=== PATIENT | female | born 1975 | race Caucasian/White ===

== ENCOUNTER → 2023-03-13 09:12 | Outpatient (BNVA) | payer BC, SELFPAY | PROVIDERS: PCP Registered Nurse; Visit Provider Registered Nurse | DX: E03.9 Hypothyroidism, unspecified (principal); E78.5 Hyperlipidemia, unspecified; Z12.31 Encounter for screening mammogram for malignant neoplasm of breast; Z76.89 Persons encountering health services in other specified circumstances; F17.210 Nicotine dependence, cigarettes, uncomplicated; Z72.0 Tobacco use; M25.571 Pain in right ankle and joints of right foot; M25.572 Pain in left ankle and joints of left foot | CPT/HCPCS: 80053; 80061; 84443; 85025 ==

== ENCOUNTER 2023-04-03 08:01 | Outpatient (CLI) | payer BC, SELFPAY ==
--- NOTE | 2023-04-03 08:08 | MM_ITS ---
WS: [id number] BILATERAL SCREENING DIGITAL TOMOSYNTHESIS MAMMOGRAM WITH CAD HISTORY: Z12.31 - Encounter for screening mammogram for malignant ... COMPARISON: No priors available. Prior mammograms are requested from an outside institution without s uccess Bilateral CC and MLO views with tomosynthesis and synthetic mammography submitted. Computer aided det ection analyzed. Breast composition: There are scattered areas of fibroglandular density. No suspicious masses, microc alcifications or architectural distortion. Benign calcification upper RIGHT breast. IMPRESSION: MM/[place] [id number] BI-RADS: 2-Benign FOLLOW UP: 1 Year Follow-up
== END 2023-04-03 08:02 | disposition home or self-care (01) ==
LOC: RAD 08:06 → MOBLMAM 08:07
PROVIDERS: PCP Registered Nurse; Visit Provider Registered Nurse
DX: Z12.31 Encounter for screening mammogram for malignant neoplasm of breast (principal)
CPT/HCPCS: 77063; 77067

== ENCOUNTER → 2023-06-07 08:37 | Outpatient (BNVA) | payer BC, SELFPAY | PROVIDERS: PCP Registered Nurse; Visit Provider Registered Nurse | DX: E07.9 Disorder of thyroid, unspecified (principal); E53.8 Deficiency of other specified B group vitamins; E03.9 Hypothyroidism, unspecified; E78.5 Hyperlipidemia, unspecified | CPT/HCPCS: 82607; 84443 ==

== ENCOUNTER 2023-10-21 14:58 | Emergency (ER) | payer OTHER, SELFPAY ==
[2023-10-21 15:26] VITALS: BP 115/71; PULSE 61; RESP 18; TEMP 36.6; O2SAT 97
--- NOTE | 2023-10-21 15:26 | XRR_ITS ---
PROCEDURE INFORMATION: Exam: XR Right Knee Exam date and time: 10/21/2023 5:29 PM Age: 48 years old Clinical indication: Pain; Knee; Right TECHNIQUE: Imaging protocol: Radiologic exam of the right knee. Views: 3 views. COMPARISON: No relevant prior studies available. FINDINGS: Bones/joints: No significant joint space narrowing. No fracture or acute osseous abnormality. Minimal spur formation of the posterior patella. No significant suprapatellar fullness or effusion. No abnormal soft tissue calcification is seen about the knee joint. Soft tissues: No significant focal soft tissue abnormality. XR/XR knee RT 3V* [id number] IMPRESSION: No acute findings.
--- NOTE | 2023-10-21 17:48 | W.ED.EXTPRO ---
Documented by User: PAT Maurer 10/21/23 21:33 HPI - Extremity Problem General: Chief complaint: Extremity Problem,Nontraumatic Stated complaint: right knee pain Time Seen by Provider: 10/21/23 17:01 Source: patient Mode of arrival: ambulatory Limitations: no limitations History of Present Illness: Patient is a 48-year-old female presents the emergency department complaining of right knee pain onset 3 weeks. Patient states she was extending her leg to stretch, when she notes sudden onset of pain to the posterior knee with radiation around laterally to the front of the knee. She denies any previous surgeries or trauma to the knee. She states the pain has gotten worse since onset and has continually swelled, though she denies any bruising or overlying skin changes. However, she does note some distal extension of the pain into her posterior calf, and is now reporting numbness and tingling into her foot. She denies any history of chronic oral contraceptive use, recent long trips, history of blood clots, any breathing difficulties, or any other symptoms. MD Complaint: joint swelling (right knee) and joint pain (right knee) Onset (ago): week(s) (3) Pain Consistency: constant and other (Worsening) Location: right Quality: sharp Radiation: distal (Posterior) Relieving factors: nothing Exacerbating factors: range of motion, weight bearing, walking and exertion Associated symptoms: Reports no associated symptoms; Deny chest pain, fever(s) or rash Review of Systems General: Reports: 10 or more systems reviewed and unremarkable except in HPI and below Const: Denies: fever(s), chills or fatigue Eyes: Denies: change in vision ENMT: Denies: throat pain, ear or mastoid pain or nasal discharge Card: Denies: chest pain, palpitations, swelling of feet/ankles or lightheadedness Resp: Denies: dyspnea, productive cough or wheezing GI: Denies: abdominal pain, nausea, vomiting, diarrhea or constipation : Denies: flank pain, difficulty voiding, dysuria or urinary frequency Musc: Reports: extremity pain (Right posterior calf), joint pain (Right knee), joint swelling (Right knee) and limited range of motion; Denies: neck pain, back pain, extremity swelling or joint redness Skin/Breast: Denies: rash Neuro: Reports: numbness in extremities (Right lower extremity) and sensory changes (Right foot); Denies: headache(s), weakness in extremities or dizziness PFSH ED PFSH: Medical History 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 History of thyroid cancer 2020 in [place] Hyperlipidemia Surgical History History of carpal tunnel surgery Right wrist History of tonsillectomy History of hysterectomy complete in 2019 History of thyroidectomy 2019 Family History Mother Cancer, Onset Age: 53 cervical and lung Hypertension Lung disease Grandmother Cancer paternal Hypertension Father Cancer, Onset Age: 59 Brother Diabetes Grandfather Diabetes maternal Hyperlipidemia Hypertension Denies family history of Chronic kidney disease (CKD) Social History Smoking and tobacco/nicotine status: current every day tobacco/nicotine user cigarettes Packs smoked per day: 1 and e-cigarettes Alcohol intake: never Substance/Drug Use: never Adopted: No Caregiver/support person: No Lives independently: No Household members: spouse Marital status: service: No Current occupational status: employed Sexually active: Yes Do you think of yourself as: Straight/Heterosexual Current gender identity: Female Crystal/Adventist: Religious Agree to transfusion: Yes Physical Exam Const: COMMON NORMALS: no acute distress, patient oriented x3 and no limitations GENERAL APPEARANCE: cooperative, comfortable and well developed ORIENTATION/CONSCIOUSNESS: Yes awake, Yes oriented to person, Yes oriented to place and Yes oriented to time HENMT: COMMON NORMALS: normocephalic, atraumatic and hearing grossly normal bilaterally HEAD & SCALP: normocephalic and atraumatic Neck/C-Spine: COMMON NORMALS: full ROM, supple and no JVD Resp: COMMON NORMALS: normal respiratory effort, No retractions, No use of accessory muscles and clear to auscultation bilaterally AUSCULTATION: clear to auscultation bilaterally Cardio: COMMON NORMALS: no JVD, regular rate, regular rhythm, No clicks present (Cardio), No murmurs present (Cardio) and No rub (Cardio) RATE: regular rate RHYTHM: regular rhythm Extremity: COMMON NORMALS: normal to inspection and capillary refill normal GENERAL: Yes calf tenderness (Right), No cyanosis, No deformity, No pallor, No palpable cord and No pulses abnormal RIGHT LOWER EXTREMITY: Yes knee joint Right knee: Yes inspection (Normal), Yes palpation (Tender at the popliteal fossa and lateral knee joint line), Yes ROM (Limited from pain), Yes neurovascular exam (Intact) and Yes special tests Right knee special tests: Patellar apprehension test: Positive, Stanislav test: Positive, Anterior drawer sign: Positive, Pivot shift test: Positive, Anterior Denis test: Positive, Posterior Denis test: Positive, Valgus stress test: Positive and Varus stress test: Positive Neuro: COMMON NORMALS: patient oriented x3, moves all extremities, no focal motor deficits and no sensory deficits noted SENSORIUM/ORIENTATION: Yes oriented to person, Yes oriented to place and Yes oriented to time Psych: COMMON NORMALS: mental status grossly normal and Normal thought process present THOUGHT PROCESS: Normal thought process present Skin: COMMON NORMALS: no rashes or lesions noted GENERAL SKIN EXAM: no rashes or lesions noted Course Vital Signs: Vital signs: Vital Signs Temperature 97.9 F 10/21/23 15:26 Pulse Rate 61 10/21/23 15:26 Respiratory Rate 18 10/21/23 15:26 Blood Pressure 115/71 10/21/23 15:26 Pulse Oximetry 97 10/21/23 15:26 Oxygen Delivery Me thod Room Air 10/21/23 15:26 MDM - Extremity (Nontraumatic) Medical Decision Making Patient seen and evaluated today for right knee pain for the past 2 weeks. Patient denies any trauma or prior surgical history. Vitals normal. Examination unremarkable for any knee special testing, bruising, significant swelling, or other concerning signs. She did express some right calf tenderness on examination so I ordered a D-dimer which was elevated. I then ordered a venous duplex of the right lower extremity, which was negative for any signs of DVT. Plain film of right knee also negative. I informed the patient that she needs to follow-up with her primary care or orthopedics for further testing/imaging, as I am suspicious that her knee pain might be due to underlying ligament/cartilaginous pathology. I informed her to use ice and gentle range of motion as tolerated, but she denies the ability to take ibuprofen or Tylenol due to past liver/stomach issues. She will, however, follow-up later this week for further evaluation. Patient discharged home. Lab Data Radiology Impressions Knee X-Ray 10/21/23 15:26 IMPRESSION: No acute findings. Venous Duplex 10/21/23 19:07 IMPRESSION: No evidence of deep vein thrombosis. Laboratory Results D-Dimer 0.82 ug/mLFEU (0-0.59) H 10/21/23 18:25 All radiology interpretation(s) finalized by discharge Discharge Plan Discharge Patient Disposition: Home Clinical Impression: Knee pain, right Qualifiers: Chronicity: acute Qualified Code(s): M25.561 - Pain in right knee Condition: Stable Prescriptions: No Action levothyroxine 100 mcg capsule 100 mcg PO DAILY 90 Days Qty: 90 3RF atorvastatin 20 mg tablet 20 mg PO DAILY Qty: 90 0RF Discharge Orders: Discharge ED (Routine); Ordered 10/21/23 Ordered By: Wilbert Pinedo Referrals: Salvatore Odom FNP [Primary Care Provider] - Discharge Diet: Usual diet Discharge Activity: Increase activity as tolerated Patient Instructions: Swollen Knee Joint (ED), Knee Pain (ED) Activity Restrictions/Additional Instructions: Follow-up with primary care. Follow-up with Ortho as instructed. Gentle range of motion exercises as tolerated. Ice for added relief. Return with any new or worsening symptoms. 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 History of thyroid cancer 2020 in [place] Hyperlipidemia Surgical History History of carpal tunnel surgery Right wrist History of tonsillectomy History of hysterectomy complete in 2020 History of thyroidectomy 2019 Family History Mother Cancer, Onset Age: 53 cervical and lung Hypertension Lung disease Grandmother Cancer paternal Hypertension Father Cancer, Onset Age: 59 Brother Diabetes Grandfather Diabetes maternal Hyperlipidemia Hypertension Denies family history of Chronic kidney disease (CKD) Social History Smoking and tobacco/nicotine status: current every day tobacco/nicotine user cigarettes Packs smoked per day: 1 and e-cigarettes Alcohol intake: never Substance/Drug Use: never Adopted: No Caregiver/support person: No Lives independently: No Household members: spouse Marital status: service: No Current occupational status: employed Sexually active: Yes Do you think of yourself as: Straight/Heterosexual Current gender identity: Female Crystal/Adventist: Religious Agree to transfusion: Yes Course Vital Signs: Vital signs: Vital Signs Temperature 97.9 F 10/21/23 15:26 Pulse Rate 61 10/21/23 15:26 Respiratory Rate 18 10/21/23 15:26 Blood Pressure 115/71 10/21/23 15:26 Pulse Oximetry 97 10/21/23 15:26 Oxygen Delivery Me thod Room Air 10/21/23 15:26 MDM - Extremity (Nontraumatic) Medical Decision Making Patient seen and evaluated today for right knee pain for the past 2 weeks. Patient denies any trauma or prior surgical history. Vitals normal. Examination unremarkable for any knee special testing, bruising, significant swelling, or other concerning signs. She did express some right calf tenderness on examination so I ordered a D-dimer which was elevated. I then ordered a venous duplex of the right lower extremity, which was negative for any signs of DVT. Plain film of right knee also negative. I informed the patient that she needs to follow-up with her primary care or orthopedics for further testing/imaging, as I am suspicious that her knee pain might be due to underlying ligament/cartilaginous pathology. I informed her to use ice and gentle range of motion as tolerated, but she denies the ability to take ibuprofen or Tylenol due to past liver/stomach issues. She will, however, follow-up later this week for further evaluation. Patient discharged home. Chart reviewed Lab Data Radiology Impressions Knee X-Ray 10/21/23 15:26 IMPRESSION: No acute findings. Venous Duplex 10/21/23 19:07 IMPRESSION: No evidence of deep vein thrombosis. Laboratory Results D-Dimer 0.82 ug/mLFEU (0-0.59) H 10/21/23 18:25 Discharge Plan Discharge Patient Disposition: Home Clinical Impression: Knee pain, right Qualifiers: Chronicity: acute Qualified Code(s): M25.561 - Pain in right knee Condition: Stable Prescriptions: No Action levothyroxine 100 mcg capsule 100 mcg PO DAILY 90 Days Qty: 90 3RF atorvastatin 20 mg tablet 20 mg PO DAILY Qty: 90 0RF Discharge Orders: Discharge ED (Routine); Ordered 10/21/23 Ordered By: Wilbert Pinedo Referrals: Salvatore Odom FNP [Primary Care Provider] - Discharge Diet: Usual diet Discharge Activity: Increase activity as tolerated Patient Instructions: Swollen Knee Joint (ED), Knee Pain (ED) Activity Restrictions/Additional Instructions: Follow-up with primary care. Follow-up with Ortho as instructed. Gentle range of motion exercises as tolerated. Ice for added relief. Return with any new or worsening symptoms. Coding Level of Care Code ED Supervisor [facility]
[2023-10-21 18:53] LABS: D Dimer 0.82 ug/mLFEU (0-0.59)
--- NOTE | 2023-10-21 19:07 | USR_ITS ---
PROCEDURE INFORMATION: Exam: US Duplex Right Lower Extremity Veins, Limited Exam date and time: 10/21/2023 7:29 PM Age: 48 years old Clinical indication: Leg, lower; Patient HX: Venous duplex imaging was performed in only the right lower extremity. The following venous structures were evaluated: Common femoral vein, profunda vein, proximal portion of the greater saphenous vein, superficial femoral vein, and the popliteal vein. In addition, the posterior tibial and peroneal veins were evaluated. Serial compression, augmentation maneuvers, and spectral doppler flow evaluation were performed, which were normal. On the right side, the common femoral, superficial femoral, profunda femoral, popliteal, posterior tibial, greater saphenous veins and the peroneal veins were identified and interrogated in the standard fashion. These veins were found to be easily compressible with spontaneous blood flow. No evidence of thrombus noted. In addition, there is no evidence of significant edema, keenan's cyst or abscess in the area of pain. ; Additional info: Right calf pain, elevated d-dimer TECHNIQUE: Imaging protocol: Real-time duplex ultrasound of the right extremity with 2-D velasquez scale, color Doppler flow and spectral waveform analysis including responses to compression and other maneuvers (when performed) with image documentation. Limited exam was focused on the right lower extremity veins. COMPARISON: CR (LOW EXM, ) 10/21/2023 5:29 PM FINDINGS: Right deep veins: Unremarkable. The common femoral, femoral, proximal profunda femoral and popliteal veins are patent without thrombus. Normal Doppler waveforms. Normal compressibility and/or augmentation response. Visualized posterior tibial and peroneal calf veins appear unremarkable. Superficial veins: Greater saphenous vein at the saphenofemoral junction is patent without thrombus. Soft tissues: Unremarkable. US/[place] [id number] IMPRESSION: No evidence of deep vein thrombosis.
== END 2023-10-21 20:43 | disposition home or self-care (01) ==
PROVIDERS: Emergency Provider Physician Assistant; PCP Registered Nurse
DX: M25.561 Pain in right knee (principal); E78.5 Hyperlipidemia, unspecified; Z85.850 Personal history of malignant neoplasm of thyroid; F17.210 Nicotine dependence, cigarettes, uncomplicated; F17.290 Nicotine dependence, other tobacco product, uncomplicated
CPT/HCPCS: 36415; 73562; 85378; 93971; 99284

== ENCOUNTER → 2023-12-19 08:58 | Outpatient (BNVA) | payer OTHER, SELFPAY | PROVIDERS: PCP Registered Nurse; Visit Provider Registered Nurse | DX: E78.5 Hyperlipidemia, unspecified (principal); E03.9 Hypothyroidism, unspecified | CPT/HCPCS: 80053; 84443; 85025 ==

== ENCOUNTER → 2024-09-18 08:32 | Outpatient (BNVA) | payer OTHER, SELFPAY | PROVIDERS: PCP Registered Nurse; Visit Provider Registered Nurse | DX: E78.2 Mixed hyperlipidemia (principal) | CPT/HCPCS: 80053; 80061; 84443; 85025 ==

== ENCOUNTER 2024-10-21 10:22 | Outpatient (CLI) | payer OTHER, SELFPAY ==
--- NOTE | 2024-10-21 11:00 | MM_ITS ---
WS: [id number] BILATERAL SCREENING DIGITAL TOMOSYNTHESIS MAMMOGRAM WITH CAD HISTORY: Z12.31 - Encounter for screening mammogram for malignant ... COMPARISON: 04/03/2023 Bilateral CC and MLO views with tomosynthesis and synthetic mammography submitted. Computer aided detection analyzed. Breast composition: There are scattered areas of fibroglandular density. No suspicious masses, microcalcifications or architectural distortion. Benign calcifications RIGHT breast. MM/MM scr BI tomosynthesis [id number] IMPRESSION: BI-RADS: 2 - Benign. FOLLOW UP: 1 Year Follow-up
== END 2024-10-21 10:23 | disposition home or self-care (01) ==
LOC: RAD 10:24
PROVIDERS: PCP Registered Nurse; Visit Provider Registered Nurse
DX: Z12.31 Encounter for screening mammogram for malignant neoplasm of breast (principal); R92.323 Mammographic fibroglandular density, bilateral breasts; R92.1 Mammographic calcification found on diagnostic imaging of breast
CPT/HCPCS: 77063; 77067